=== PATIENT | male | born 1980 | race Caucasian/White ===

== ENCOUNTER 2020-05-27 16:56 | Emergency (ER) | payer BC, OTHER ==
[2020-05-27] MEDS ORDERED: ONDANSETRON 4 MG/2 ML VIAL ONE (19:09)
[2020-05-27] MEDS ORDERED: MORPHINE 4 MG/ML SYR ONE (19:09)
[2020-05-27 19:18] LABS: Absolute Lymphocytes (CBC) 3.4 K/uL (0.7-4.9); Basophils % 0.7 % (0-1.3); Hematocrit 49.8 % (39.6-49.0); Lymphocytes % 38.2 % (15.3-44.8); MPV 7.5 fL (7.6-11.3); RBC Red Blood Cell Count 5.65 M/uL (4.33-5.43)
[2020-05-27 19:33] LABS: ALT/SGPT 39 U/L (12-78); AST/SGOT 23 U/L (15-37); Albumin 3.8 g/dL (3.4-5.0); Alkaline Phosphatase 78 U/L (45-117); BUN Blood Urea Nitrogen 14 mg/dL (7-18); Bicarbonate 27 mmol/L (21-32); Bilirubin Total 0.2 mg/dL (0.2-1.0); Glucose Level 103 mg/dL (74-106); Protein, Total 7.5 g/dL (6.4-8.2); Sodium Level 140 mmol/L (136-145)
--- NOTE | 2020-05-27 19:34 | RAD REPORT ---
EXAM DESCRIPTION: CT - Head Brain Wo Cont - 05/27/2020 7:08 pm CLINICAL HISTORY: Headache COMPARISON: None TECHNIQUE: Computed axial tomography of the head was obtained. IV contrast was not requested. All CT scans are performed using dose optimization technique as appropriate and may include automated exposure control or mA/KV adjustment according to patient size. FINDINGS: An intracranial bleed is not seen . The ventricles are normal in caliber. No extra-axial fluid collection is noted. 13 millimeter cystic mass suspected in the pineal region. Fluid within the sinuses/ mastoids is not seen. 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 It is recommended that the patient have a nonemergen t MRI with contrast for confirmation
[2020-05-27] MEDS ORDERED: NA CHLORIDE 0.9% 500 ML ONE (19:42)
--- NOTE | 2020-05-27 19:44 | RAD REPORT ---
EXAM DESCRIPTION: CTHead angio05/27/2020 7:08 pm CLINICAL HISTORY: Headache COMPARISON: None TECHNIQUE: CT angiogram of the head was obtained. 3D MIPS reconstruction performed. All CT scans are performed using dose optimization technique as appropriate and may include automated exposure control or mA/KV adjustment according to patient size. FINDINGS: The basilar, internal carotid, anterior cerebral, middle cerebral and posterior cerebral a rteries are normal caliber. An aneurysm is not seen. A significant stenosis is not noted. IMPRESSION: Unremarkable CT angiogram head.
[2020-05-27 19:45] LABS: Urine Blood NEGATIVE (NEG); Urine Glucose NEGATIVE (NEG); Urine Protein NEGATIVE (NEG); Urine Specific Gravity 1.015 (1.005-1.030)
--- NOTE | 2020-05-27 19:48 | ER ---
Nurse's Notes 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 Coronavirus screen: Patient denies a cough. Patient denies shortness of breath or difficulty breathing. Patient denies measured and/or subjective temperature greater than 100.4F prior to today's visit. Patient denies travel on a cruise ship or to a country the [facility] currently lists as an affected area. Patient denies contact with known and/or suspected case of COVID-19. Ebola Screen: Patient denies travel to an Ebola-affected area in the 21 days before illness onset. Initial Sepsis Screen: Does the patient meet any 2 criteria? No. Patient's initial sepsis screen is negative. Does the patient have a suspected source of infection? No. Patient's initial sepsis screen is negative. Risk Assessment: Do you want to hurt yourself or someone else? Patient reports no desire to harm self or others. Onset of symptoms was May 27, 2020. 17:41 Method Of Arrival: Ambulatory tw2 17:41 Acuity: MIC 4 tw2 Triage Assessment: 17:44 General: Appears in no apparent distress. obese, well groomed, Behavior is calm, tw2 cooperative, appropriate for age. Pain: Pain currently is 8 out of 10 on a pain scale. Pain began 2-3 days ago. Also complains of nausea, "only when the headache is bad". Neuro: Reports headache. 17:45 Headache History: Denies prior headaches. tw2 Historical: - Allergies: 17:46 No Known Allergies; tw2 - Home Meds: 17:46 None [Active]; tw2 - PMHx: 17:46 bicuspid valve deficiency; tw2 - PSHx: 17:46 None; tw2 - Immunization history:: Adult Immunizations up to date. - Social history:: Smoking status: Patient denies any tobacco usage or history of. Screenin:56 Abuse screen: Denies threats or abuse. Nutritional screening: No deficits noted. ll1 Tuberculosis screening: No symptoms or risk factors identified. Fall Risk IV access (20 points). Total Land Fall Scale indicates No Risk (0-24 pts). Assessment: 18:25 General: Appears in no apparent distress. Behavior is calm, cooperative. Pain: ll1 Complains of pain in head Quality of pain is described as aching, Pain began 2-3 days ago. Is continuous. Neuro: Level of Consciousness is awake, alert, obeys commands, Oriented to person, place, time, situation, Appropriate for age Apprentice Embalmer are equal bilaterally Moves all extremities. Full function Gait is steady, Speech is normal, Facial symmetry appears normal, Pupils are PERRLA, Reports headache. Cardiovascular: No deficits noted. Respiratory: No deficits noted. Musculoskeletal: Circulation, motion, and sensation intact. Capillary refill < 3 seconds, Range of motion: intact in all extremities, Reports pain in head and posterior neck. 19:00 Reassessment: Patient appears in no apparent distress at this time. Patient and/or jb4 family updated on plan of care and expected duration. Pain level reassessed. Patient is alert, oriented x 3, equal unlabored respirations, skin warm/dry/pink. 20:14 Reassessment: Patient appears in no apparent distress at this time. Patient and/or jb4 family updated on plan of care and expected duration. Pain level reassessed. Patient is alert, oriented x 3, equal unlabored respirations, skin warm/dry/pink. Patient states feeling better. Vital Signs: 17:41 BP 122 / 88; Pulse 77; Resp 18; Temp 97.6(TE); Pulse Ox 95% on R/A; Weight 131.54 kg tw2 (R); Height 5 ft. 8 in. (172.72 cm); Pain 8/10; 19:20 BP 145 / 86; Pulse 68; Resp 16; Pulse Ox 93% on R/A; jb4 20:00 BP 128 / 91; Pulse 75; Resp 16; Pulse Ox 93% on R/A; jb4 17:41 Body Mass Index 44.09 (131.54 kg, 172.72 cm) tw2 Ino Coma Score: 18:58 Eye Response: spontaneous(4). Verbal Response: oriented(5). Motor Response: obeys jahaira commands(6). Total: 15. ED Course: 16:59 Patient arrived in ED. am2 16:59 Dominick Johns DO is Private Physician. am2 17:44 Triage completed. tw2 17:44 Arm band placed on. tw2 17:47 Rober Gomez MD is Attending Physician. jahaira 18:18 Kareem Last, RN is Primary Nurse. ll1 18:42 Radiology exam delayed due to IV insertion attempt and/or patient not having vm2 appropriate IV at this time. 18:56 Inserted saline lock: 20 gauge in right antecubital area, using aseptic technique. ll1 Blood collected. 18:57 Patient has correct armband on for positive identification. Bed in low position. Call ll1 light in reach. Side rails up X 1. 19:08 CT Head Angio In Process Unspecified. EDMS 19:08 CT Head Brain wo Cont In Process Unspecified. EDMS 19:13 Primary Nurse role handed off by Kareem Last, JOE jb4 19:13 Kumar Ernandez, RN is Primary Nurse. jb4 19:47 Dominick Johns DO is Referral Physician. jahaira 19:47 Job French MD is Referral Physician. jahaira 20:23 No provider procedures requiring assistance completed. IV discontinued, intact, jb4 bleeding controlled, No redness/swelling at site. Pressure dressing applied. Administered Medications: 19:37 Drug: Zofran (Ondansetron) 4 mg Route: IVP; Site: right antecubital; jb4 20:22 Follow up: Response: No adverse reaction; Nausea is decreased jb4 19:39 Drug: NS 0.9% 500 ml Route: IV; Rate: bolus; Site: right antecubital; jb4 20:22 Follow up: Response: No adverse reaction; IV Status: Completed infusion; IV Intake: jb4 500ml 19:40 Drug: morphine 4 mg {Note: Rass score 0.} Route: IVP; Site: right antecubital; jb4 20:22 Follow up: Response: No adverse reaction; Pain is decreased; RASS: Alert and Calm (0) jb4 Intake: 20:22 IV: 500ml; Total: 500ml. jb4 Outcome: 19:47 Discharge ordered by . jahaira 20:23 Discharged to home ambulatory, with family. jb4 20:23 Condition: stable 20:23 Discharge instructions given to patient, Instructed on discharge instructions, follow up and referral plans. medication usage, Demonstrated understanding of instructions, follow-up care, medications, Prescriptions given X 2. 20:24 Patient left the ED. jb4 Signatures: Dispatcher [employer] EDMS Rober Gomez MD MD cha Wise, Tara, RN RN tw2 Kumar Ernandez, JOE RN jb4 Esthela Fragoso Victoria 2 Kareem Last, RN RN ll1 Corrections: (The following items were deleted from the chart) 17:46 17:46 PMHx: None; tw2 tw2
--- NOTE | 2020-05-27 19:48 | EDPHYS ---
Physician Documentation [facility] Name: Eduard Bassett Jr Age: 39 yrs Sex: Male : 1980 Arrival Date: 05/27/2020 Time: 16:59 Bed 13 Private MD: Dominick Johns H ED Physician Rober Gomez HPI: 05/27 18:55 This 39 yrs old Male presents to ER via Ambulatory with complaints of jahaira Headache > 24hrs Old. 18:55 The patient complains of pain to the top of head, forehead, left frontal area, left jahaira side of the back of head, left occipital area, left base of the skull, right frontal area, right side of the back of head, right occipital area and right base of the skull. The patient describes the headache as aching, constant. Onset: The symptoms/episode began/occurred 3 day(s) ago. Associated signs and symptoms: The patient has no apparent associated signs or symptoms. Severity of symptoms: At its worst the pain was mild, moderate, in the emergency department the pain is unchanged. Headache History: The patient has had previous headaches and this one is similar to previous episodes. The symptoms are alleviated by nothing. the symptoms are aggravated by nothing. The patient has experienced similar episodes in the past, a few times. Historical: - Allergies: 17:46 No Known Allergies; tw2 - Home Meds: 17:46 None [Active]; tw2 - PMHx: 17:46 bicuspid valve deficiency; tw2 - PSHx: 17:46 None; tw2 - Immunization history:: Adult Immunizations up to date. - Social history:: Smoking status: Patient denies any tobacco usage or history of. ROS: 18:56 Constitutional: Negative for fever, chills, and weight loss, Eyes: Negative for injury, jahaira pain, redness, and discharge, ENT: Negative for injury, pain, and discharge, Neck: Negative for injury, pain, and swelling, Cardiovascular: Negative for chest pain, palpitations, and edema, Respiratory: Negative for shortness of breath, cough, wheezing, and pleuritic chest pain, Abdomen/GI: Negative for abdominal pain, nausea, vomiting, diarrhea, and constipation, Back: Negative for injury and pain, : Negative for injury, bleeding, discharge, and swelling, MS/Extremity: Negative for injury and deformity, Skin: Negative for injury, rash, and discoloration, Psych: Negative for depression, anxiety, suicide ideation, homicidal ideation, and hallucinations, Allergy/Immunology: Negative for hives, rash, and allergies, Endocrine: Negative for neck swelling, polydipsia, polyuria, polyphagia, and marked weight changes, Hematologic/Lymphatic: Negative for swollen nodes, abnormal bleeding, and unusual bruising. 18:56 Neuro: Positive for headache. Exam: 18:56 Constitutional: This is a well developed, well nourished patient who is awake, alert, jahaira and in no acute distress. Head/Face: Normocephalic, atraumatic. Eyes: Pupils equal round and reactive to light, extra-ocular motions intact. Lids and lashes normal. Conjunctiva and sclera are non-icteric and not injected. Cornea within normal limits. Periorbital areas with no swelling, redness, or edema. ENT: Nares patent. No nasal discharge, no septal abnormalities noted. Tympanic membranes are normal and external auditory canals are clear. Oropharynx with no redness, swelling, or masses, exudates, or evidence of obstruction, uvula midline. Mucous membranes moist. Neck: Trachea midline, no thyromegaly or masses palpated, and no cervical lymphadenopathy. Supple, full range of motion without nuchal rigidity, or vertebral point tenderness. No Meningismus. Chest/axilla: Normal chest wall appearance and motion. Nontender with no deformity. No lesions are appreciated. Cardiovascular: Regular rate and rhythm with a normal S1 and S2. No gallops, murmurs, or rubs. Normal PMI, no JVD. No pulse deficits. Respiratory: Lungs have equal breath sounds bilaterally, clear to auscultation and percussion. No rales, rhonchi or wheezes noted. No increased work of breathing, no retractions or nasal flaring. Abdomen/GI: Soft, non-tender, with normal bowel sounds. No distension or tympany. No guarding or rebound. No evidence of tenderness throughout. Back: No spinal tenderness. No costovertebral tenderness. Full range of motion. Male : Normal genitalia with no discharge or lesions. Skin: Warm, dry with normal turgor. Normal color with no rashes, no lesions, and no evidence of cellulitis. MS/ Extremity: Pulses equal, no cyanosis. Neurovascular intact. Full, normal range of motion. Neuro: Awake and alert, GCS 15, oriented to person, place, time, and situation. Cranial nerves II-XII grossly intact. Motor strength 5/5 in all extremities. Sensory grossly intact. Cerebellar exam normal. Normal gait. Psych: Awake, alert, with orientation to person, place and time. Behavior, mood, and affect are within normal limits. 18:56 Neck: ROM/movement: is normal, no acute changes, pain, is not appreciated, limited range of motion, is not appreciated, Meningeal signs: are not present, Kernig's sign is negative, Brudzinski's sign is negative, nuchal rigidity, is not appreciated. Vital Signs: 17:41 BP 122 / 88; Pulse 77; Resp 18; Temp 97.6(TE); Pulse Ox 95% on R/A; Weight 131.54 kg tw2 (R); Height 5 ft. 8 in. (172.72 cm); Pain 8/10; 19:20 BP 145 / 86; Pulse 68; Resp 16; Pulse Ox 93% on R/A; jb4 20:00 BP 128 / 91; Pulse 75; Resp 16; Pulse Ox 93% on R/A; jb4 17:41 Body Mass Index 44.09 (131.54 kg, 172.72 cm) tw2 Ino Coma Score: 18:58 Eye Response: spontaneous(4). Verbal Response: oriented(5). Motor Response: obeys jahaira commands(6). Total: 15. MDM: 17:47 Patient medically screened. jahaira 18:58 Differential diagnosis: cluster headache, migraine, neoplasm, sinusitis, subdural jahaira hematoma, vasomotor headache. Data reviewed: vital signs, nurses notes, lab test result(s), EKG, radiologic studies. Data interpreted: welt maker: rate is 77 beats/min, rhythm is regular, Pulse oximetry: on room air. Test interpretation: by ED physician or midlevel provider:. Counseling: I had a detailed discussion with the patient and/or guardian regarding: the historical points, exam findings, and any diagnostic results supporting the discharge/admit diagnosis, lab results, radiology results. 05/27 18:25 Order name: CBC with Diff pm1 05/27 18:25 Order name: CMP pm1 05/27 18:25 Order name: CBC with Automated Diff; Complete Time: 19:45 EDMS 05/27 18:25 Order name: Comprehensive Metabolic Panel; Complete Time: 19:45 EDMS 05/27 18:55 Order name: UDS; Complete Time: 01:03 jahaira 05/27 19:30 Order name: Urine Dipstick--Ancillary (enter results); Complete Time: 01:03 tt3 05/27 18:25 Order name: CT Head Angio; Complete Time: 19:45 pm1 05/27 18:25 Order name: CT Head Brain wo Cont; Complete Time: 19:45 pm1 05/27 18:25 Order name: IV Saline Lock; Complete Time: 18:56 pm1 05/27 18:55 Order name: Urine Dipstick-Ancillary (obtain specimen); Complete Time: 18:57 [facility] Administered Medications: 19:37 Drug: Zofran (Ondansetron) 4 mg Route: IVP; Site: right antecubital; [facility] 20:22 Follow up: Response: No adverse reaction; Nausea is decreased [facility] 19:39 Drug: NS 0.9% 500 ml Route: IV; Rate: bolus; Site: right antecubital; [facility] 20:22 Follow up: Response: No adverse reaction; IV Status: Completed infusion; IV Intake: jb4 500ml 19:40 Drug: morphine 4 mg {Note: Rass score 0.} Route: IVP; Site: right antecubital; [facility] 20:22 Follow up: Response: No adverse reaction; Pain is decreased; RASS: Alert and Calm (0) [facility] Disposition: 05/27/20 19:47 Discharged to Home. 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 - Condition is Stable. - Discharge Instructions: General Headache Without Cause, Obesity, Adult, General Headache Without Cause, [id number]. - Prescriptions for Fioricet with Codeine 50- 325-40-30 mg Oral capsule - take 2 capsule by ORAL route every 8 hours as needed not to exceed 6 capsules per 24hrs; 24 capsule. Zofran 4 mg Oral Tablet - take 1 tablet by ORAL route every 12 hours As needed; 20 tablet. - Medication Reconciliation Form, Thank You Letter, Antibiotic Education, Prescription Opioid Use, Work release form form. - Follow up: Dominick Johns; When: 2 - 3 days; Reason: Recheck today's complaints, Continuance of care, Re-evaluation by your physician. Follow up: Job French; When: 2 - 3 days; Reason: Recheck today's complaints, Re-evaluation by your physician. - Problem is new. - Symptoms have improved. Signatures: Dispatcher [employer] EDMS Rober Gomez MD MD cha Marinas, Patrick, MANUFACTURING ENGINEERING MANAGER MANUFACTURING ENGINEERING MANAGER pm1 Diana Vizcaino RN RN tw2 Kumar Ernandez RN RN jb4 Corrections: (The following items were deleted from the chart) 17:46 17:46 PMHx: None; tw2 tw2 19:50 19:47 05/27/2020 19:47 Discharged to Home. Impression: Headache; Obesity, unspecified. [facility] Condition is Stable. Discharge Instructions: General Headache Without Cause, Obesity, Adult, General Headache Without Cause, [id number]-Shaq. Prescriptions for Fioricet with Codeine 45-010-19-30 mg Oral capsule - take 2 capsule by ORAL route every 8 hours as needed not to exceed 6 capsules per 24hrs; 24 capsule, Zofran 4 mg Oral Tablet - take 1 tablet by ORAL route every 12 hours As needed; 20 tablet. and Forms are Medication Reconciliation Form, Thank You Letter, Antibiotic Education, Prescription Opioid Use. Follow up: Dominick Johns; When: 2 - 3 days; Reason: Recheck today's complaints, Continuance of care, Re-evaluation by your physician. Follow up: Job French; When: 2 - 3 days; Reason: Recheck today's complaints, Re-evaluation by your physician. Problem is new. Symptoms have improved. [facility] 20:24 19:50 05/27/2020 19:47 Discharged to Home. 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 Condition is Stable. Discharge Instructions: General Headache Without Cause, Obesity, Adult, General Headache Without Cause, [id number]. Prescriptions for Fioricet with Codeine 70-430-40-30 mg Oral capsule - take 2 capsule by ORAL route every 8 hours as needed not to exceed 6 capsules per 24hrs; 24 capsule, Zofran 4 mg Oral Tablet - take 1 tablet by ORAL route every 12 hours As needed; 20 tablet. and Forms are Medication Reconciliation Form, Thank You Letter, Antibiotic Education, Prescription Opioid Use. Follow up: Dominick Johns; When: 2 - 3 days; Reason: Recheck today's complaints, Continuance of care, Re-evaluation by your physician. Follow up: Job French; When: 2 - 3 days; Reason: Recheck today's complaints, Re-evaluation by your physician. Problem is new. Symptoms have improved. jahaira
[2020-05-27 19:56] LABS: Barbiturates NEGATIVE (NEGATIVE); Benzodiazepines NEGATIVE (NEGATIVE); Cocaine NEGATIVE (NEGATIVE); METHAMPHETAM NEGATIVE (NEGATIVE); Methadone NEGATIVE (NEGATIVE); Opiates NEGATIVE (NEGATIVE); Phencyclidine NEGATIVE (NEGATIVE); THC Cannibis NEGATIVE (NEGATIVE)
[2020-05-27 20:30] VITALS: TEMP 97.6
[2020-05-27 20:32] VITALS: O2SAT 93
[2020-05-27 20:33] VITALS: BP 128/91
== END 2020-05-27 20:24 | disposition home or self-care (01) ==
LOC: ER 16:56
DX: R51 Headache (principal); D44.5 Neoplasm of uncertain behavior of pineal gland; E66.9 Obesity, unspecified
CPT/HCPCS: 96361; 85025; 36415; 82565; 80307 ×8; 81003; 80053; 70450; 70496; 96375; 96374; 99284; Q9967; J7040; J2405

== ENCOUNTER 2021-12-27 13:18 | Emergency (ER) | payer BC ==
--- NOTE | 2021-12-27 14:04 | EDPHYS ---
Physician Documentation [facility] Name: Eduard Bassett Jr Age: 41 yrs Sex: Male : 1980 Arrival Date: 12/27/2021 Time: 13:20 Bed 6 Private MD: ED Physician Dany Vanegas HPI: 12/27 14:00 This 41 yrs old Male presents to ER via Ambulatory with complaints of Rash. jr11 14:00 The patient's rash thought to be caused by an unknown cause. The rash is located on the jr11 right leg. The rash can be described as erythematous, vesicular, burning. Onset: The symptoms/episode began/occurred yesterday. Associated signs and symptoms: Pertinent negatives: difficulty breathing, nausea, swelling of lips, swelling of throat, swelling of tongue, vomiting. Severity of symptoms: At their worst the symptoms were moderate in the emergency department the symptoms are worse. Treatment given at home: none. Historical: - Allergies: 13:40 No Known Allergies; ss - PMHx: 13:40 bicuspid valve deficiency; Migraines; ss - Immunization history:: Client reports receiving the 2nd dose of the Covid vaccine. - Social history:: Smoking status: Patient denies any tobacco usage or history of. ROS: 14:00 Constitutional: Negative for fever, chills Eyes: Negative for injury, pain, redness, jr11 and discharge, ENT: Negative for injury, pain, and discharge, Neck: Negative for injury, pain, and swelling, Cardiovascular: Negative for chest pain, palpitations, and edema, Abdomen/GI: Negative for abdominal pain, nausea, vomiting Back: Negative for injury and pain, Neuro: Negative for headache, weakness, numbness, tingling, and seizure, Psych: Negative for depression, anxiety, suicide ideation, homicidal ideation, and hallucinations, Allergy/Immunology: Negative for hives, +rash Exam: 14:00 Constitutional: This is a well developed, well nourished patient who is awake, alert, jr11 and in no acute distress. Head/Face: Normocephalic, atraumatic. Eyes: Extra-ocular motions intact. Lids and lashes normal. Conjunctiva and sclera are non-icteric and not injected. Cornea within normal limits. Periorbital areas with no swelling, redness, or edema. ENT: Nares patent. No nasal discharge, no septal abnormalities noted. Oropharynx with no redness, swelling, or masses, exudates, or evidence of obstruction, uvula midline. Mucous membranes moist. Neck: Trachea midline, no thyromegaly or masses palpated, and no cervical lymphadenopathy. Supple, full range of motion without nuchal rigidity, or vertebral point tenderness. No Meningismus. Chest/axilla: Normal chest wall appearance and motion. Nontender with no deformity. No lesions are appreciated. Cardiovascular: Regular rate and rhythm with a normal S1 and S2. No gallops, murmurs, or rubs. Normal PMI, no JVD. No pulse deficits. Respiratory: Lungs have equal breath sounds bilaterally, clear to auscultation and percussion. No rales, rhonchi or wheezes noted. No increased work of breathing, no retractions or nasal flaring. Abdomen/GI: Soft, non-tender, with normal bowel sounds. No distension or tympany. No guarding or rebound. No evidence of tenderness throughout. Back: No spinal tenderness. No costovertebral tenderness. Full range of motion. Skin: erythematous rash, RLE follows dermatomal distribution, appears dried up vesicles Vital Signs: 13:25 BP 168 / 92; Pulse 92; Resp 18; Temp 98.4(TE); Pulse Ox 98% on R/A; Weight 127.01 kg; ss Height 5 ft. 7 in. (170.18 cm); Pain 1/10; 14:17 BP 152 / 78; Pulse 82; Resp 18; Temp 97.9; Pulse Ox 99% on R/A; ph 13:25 Body Mass Index 43.85 (127.01 kg, 170.18 cm) ss MDM: 13:59 Patient medically screened. jr11 14:00 Differential diagnosis: pt with rash, concern zoster. Data reviewed: vital signs, jr11 nurses notes. Administered Medications: No medications were administered Disposition Summary: 12/27/21 14:04 Discharge Ordered Location: Home [facility] Condition: Stable jr11 Diagnosis - Rash and other nonspecific skin eruption jr11 - Zoster without complications jr11 Followup: jr11 - With: Private Physician - When: 1 - 2 days - Reason: Re-evaluation by your physician Discharge Instructions: - Discharge Summary Sheet jr11 - Rash, Adult jr11 Forms: - Medication Reconciliation Form jr11 - Work release form ph - Thank You Letter jr11 - Antibiotic Education jr11 - Prescription Opioid Use jr11 Prescriptions: - Acyclovir 800 mg Oral Tablet - take 1 tablet by ORAL route 5 times per day for 10 days; 50 tablet; Refills: 0, jr11 Product Selection Permitted - Prednisone 20 mg Oral Tablet - take 3 tablets by ORAL route once daily for 5 days; 15 tablet; Refills: 0, jr11 Product Selection Permitted Signatures: Radha Haile RN RN Dany Terry MD MD jr11 Corrections: (The following items were deleted from the chart) 14:02 14:00 Constitutional: Negative for fever, chills Eyes: Negative for injury, pain, jr11 redness, and discharge, ENT: Negative for injury, pain, and discharge, Neck: Negative for injury, pain, and swelling, Cardiovascular: Negative for chest pain, palpitations, and edema, Abdomen/GI: Negative for abdominal pain, nausea, vomiting Back: Negative for injury and pain, Neuro: Negative for headache, weakness, numbness, tingling, and seizure, Psych: Negative for depression, anxiety, suicide ideation, homicidal ideation, and hallucinations, Allergy/Immunology: Negative for hives, rash, and allergies, jr11
--- NOTE | 2021-12-27 14:04 | ER ---
Nurse's Notes [facility] Name: Eduadr Bassett Jr Age: 41 yrs Sex: Male : 1980 Arrival Date: 12/27/2021 Time: 13:20 Bed 6 Private MD: Diagnosis: Rash and other nonspecific skin eruption;Zoster without complications Presentation: 12/27 13:25 Chief complaint: Patient states: rash vs bites to LLE that patient noticed yesterday. ss C/o burning sensation 11/09. Coronavirus screen: Client denies travel out of the [place] in the last 14 days. Ebola Screen: Patient denies exposure to infectious person. Patient denies travel to an Ebola-affected area in the 21 days before illness onset. Initial Sepsis Screen: Does the patient meet any 2 criteria? No. Patient's initial sepsis screen is negative. Does the patient have a suspected source of infection? No. Patient's initial sepsis screen is negative. Risk Assessment: Do you want to hurt yourself or someone else? Patient reports no desire to harm self or others. Onset of symptoms was December 26, 2021. 13:25 Method Of Arrival: Ambulatory ss 13:25 Acuity: MIC 3 ss Historical: - Allergies: 13:40 No Known Allergies; ss - PMHx: 13:40 bicuspid valve deficiency; Migraines; ss - Immunization history:: Client reports receiving the 2nd dose of the Covid vaccine. - Social history:: Smoking status: Patient denies any tobacco usage or history of. Screenin:17 Abuse screen: Denies threats or abuse. Denies injuries from another. Nutritional ph screening: No deficits noted. Tuberculosis screening: No symptoms or risk factors identified. Fall Risk None identified. Assessment: 14:16 General: Appears in no apparent distress. comfortable, Behavior is calm, cooperative, ph appropriate for age, Denies fever, feeling ill. Pain: Complains of pain in lateral aspect of right calf Quality of pain is described as burning. 14:16 Neuro: Level of Consciousness is awake, alert, obeys commands, Oriented to person, ph place, time, situation. Cardiovascular: Capillary refill < 3 seconds in bilateral fingers Patient's skin is warm and dry. Respiratory: Airway is patent Respiratory effort is even, unlabored. Derm: Skin is healthy with good turgor, Skin is pink, warm \T\ dry. Rash noted that is red, vesicular, on right leg. Vital Signs: 13:25 BP 168 / 92; Pulse 92; Resp 18; Temp 98.4(TE); Pulse Ox 98% on R/A; Weight 127.01 kg; Height 5 ft. 7 in. (170.18 cm); Pain /; 14:17 BP 152 / 78; Pulse 82; Resp 18; Temp 97.9; Pulse Ox 99% on R/A; ph 13:25 Body Mass Index 43.85 (127.01 kg, 170.18 cm) ED Course: 13:20 Patient arrived in ED. ds1 13:35 Dany Vanegas MD is Attending Physician. 11 13:39 Arti Jacobson RN is Primary Nurse. rogerio 13:40 Triage completed. ss 13:40 Arm band placed on right wrist. 14:17 Patient has correct armband on for positive identification. Bed in low position. Call ph light in reach. Side rails up X 1. 14:17 No provider procedures requiring assistance completed. Patient did not have IV access ph during this emergency room visit. Administered Medications: No medications were administered Outcome: 14:04 Discharge ordered by . domingo 14:17 Discharged to home ambulatory, with family. ph 14:17 Condition: good 14:17 Discharge instructions given to patient, Instructed on discharge instructions, follow up and referral plans. medication usage, Demonstrated understanding of instructions, follow-up care, medications, Prescriptions given X 2. 14:18 Patient left the ED. ph Signatures: Daniela Brower ds1 Radha Haile RN RN Oly Gregory RN RN Arti Jacobson RN RN Dany Vanegas MD MD [email or web address] Corrections: (The following items were deleted from the chart) 14:17 14:16 Pain: Denies pain. ph ph
[2021-12-27 14:23] VITALS: BP 152/78; TEMP 97.9; O2SAT 99
== END 2021-12-27 14:18 | disposition home or self-care (01) ==
LOC: ER 13:18
DX: B02.9 Zoster without complications (principal)
CPT/HCPCS: 99282

== ENCOUNTER 2022-03-18 07:38 | Emergency (ER) | payer BC ==
[2022-03-18 08:58] LABS: Hematocrit 49.3 % (39.6-49.0); Lymphocytes % 43.1 % (15.3-44.8); MPV 7.2 fL (7.6-11.3); RBC Red Blood Cell Count 5.57 M/uL (4.33-5.43)
[2022-03-18] MEDS ORDERED: NA CHLORIDE 0.9% 1,000 ML ONE (09:14)
[2022-03-18] MEDS ORDERED: FAMOTIDINE 20 MG/2 ML VIAL IV ONE (09:15)
[2022-03-18] MEDS ORDERED: ONDANSETRON 4 MG/2 ML VIAL ONE (09:15)
[2022-03-18] MEDS ORDERED: MORPHINE 4 MG/ML SYR ONE (09:15)
[2022-03-18 09:24] LABS: Albumin 3.7 g/dL (3.4-5.0); Bilirubin Total 0.5 mg/dL (0.2-1.0); Protein, Total 7.1 g/dL (6.4-8.2)
--- NOTE | 2022-03-18 09:58 | RAD REPORT ---
EXAM DESCRIPTION: CT - Abdomen Pelvis W Contrast - 03/18/2022 9:41 am CLINICAL HISTORY: Abdominal pain, acute, nonlocalized COMPARISON: No comparisons TECHNIQUE: Biphasic, helical CT imaging of the abdomen and pelvis was performed following 100 ml non -ionic IV contrast. No oral contrast administered. All CT scans are performed using dose optimization technique as appropriate and may include automated exposure control or mA/KV adjustment according to patient size. FINDINGS: No suspicious findings in the lung bases. No cardiomegaly or pericardial effusion. Liver and spleen are normal size. Fatty infiltration is present in the liver. No focal lesions seen. No portal vein abnormality identified. No pancreatic or peripancreatic abnormality seen. Gallbladder and biliary tree are also without suspicious finding. Symmetric renal function is seen with no hydronephrosis or suspicious renal mass. No pyelonephritis o r acute parenchymal process. No bladder abnormalities. No adrenal abnormalities. No dilated bowel loops or bowel wall thickening. The appendix is normal. No active GI process identif iable. No free air, free fluid or inflammatory stranding. No mass or bulky lymphadenopathy. No abdom inal wall hematoma. Patient has a very minimal fat only left inguinal hernia. No congested or [place] fat. Bony degenerative change seen in the lower lumbar spine. No acute bone finding. No acute vascular finding. IMPRESSION: Contrast enhanced CT abdomen and pelvis showing no acute or emergent finding. No abnorm ality to explain left upper quadrant pain. Nonacute findings detailed in the body of the report.
--- NOTE | 2022-03-18 10:19 | ER ---
Nurse's Notes [facility] Name: Eduard Bassett Jr Age: 41 yrs Sex: Male : 1980 Arrival Date: 03/18/2022 Time: 07:40 Bed 20 Private MD: Diagnosis: Upper abdominal pain, unspecified Presentation: 03/18 08:32 Chief complaint: Patient states: LUQ pain, mild headache that is normal. Coronavirus iw screen: At this time, the client does not indicate any symptoms associated with coronavirus-19. Ebola Screen: Patient negative for fever greater than or equal to 101.5 degrees Fahrenheit, and additional compatible Ebola Virus Disease symptoms Patient denies exposure to infectious person. Patient denies travel to an Ebola-affected area in the 21 days before illness onset. No symptoms or risks identified at this time. Initial Sepsis Screen: Does the patient meet any 2 criteria? No. Patient's initial sepsis screen is negative. Does the patient have a suspected source of infection? No. Patient's initial sepsis screen is negative. Risk Assessment: Do you want to hurt yourself or someone else? Patient reports no desire to harm self or others. Onset of symptoms was March 18, 2022. 08:32 Method Of Arrival: Ambulatory iw 08:32 Acuity: MIC 3 iw Triage Assessment: 09:25 Headache History: The patient has had previous headaches and this one is similar to ap3 previous episodes. General: Appears in no apparent distress. Behavior is calm, cooperative, appropriate for age. Pain: Also complains of. Pain: Complains of pain in left upper quadrant and forehead Pain currently is 6 out of 10 on a pain scale. Pain began 1-2 weeks ago. Neuro: Level of Consciousness is awake, alert, obeys commands, Oriented to person, place, time, situation, Speech is normal. Cardiovascular: Capillary refill < 3 seconds Patient's skin is warm and dry. Respiratory: Airway is patent Respiratory effort is even, unlabored. Historical: - Allergies: 08:44 No Known Allergies; iw - PMHx: 08:33 bicuspid valve deficiency; Migraines; iw - Immunization history:: Client reports receiving the 2nd dose of the Covid vaccine. - Social history:: Smoking status: Patient denies any tobacco usage or history of. Screenin:25 Abuse screen: Denies threats or abuse. Nutritional screening: No deficits noted. ap3 Tuberculosis screening: No symptoms or risk factors identified. Fall Risk None identified. Assessment: 09:24 Reassessment: Patient and/or family updated on plan of care and expected duration. Pain ap3 level reassessed. Patient is alert, oriented x 3, equal unlabored respirations, skin warm/dry/pink. General: Appears in no apparent distress. comfortable. Pain: Complains of pain in left upper quadrant and forehead. Neuro: Level of Consciousness is awake, alert, obeys commands, Oriented to person, place, time, situation, Appropriate for age Gait is steady, Speech is normal, Facial symmetry appears normal. Cardiovascular: Patient's skin is warm and dry. Respiratory: Airway is patent Respiratory effort is even, unlabored, Respiratory pattern is regular, symmetrical. GI: Reports upper abdominal pain, nausea. Vital Signs: 08:32 BP 132 / 91; Pulse 66; Resp 16; Temp 97.5; Pulse Ox 97% on R/A; iw 09:24 BP 126 / 78; Pulse 69; Pulse Ox 96% on R/A; ap3 ED Course: 07:40 Patient arrived in ED. as 07:56 [facility] jh7 07:57 Rober Gomez MD is Attending Physician. jh7 08:33 Triage completed. iw 08:34 Arm band placed on. iw 08:53 Inserted saline lock: 22 gauge in right antecubital area, using aseptic technique. iw 09:06 Esthela Jackson, RN is Primary Nurse. ap3 09:26 Patient has correct armband on for positive identification. Bed in low position. Call ap3 light in reach. Side rails up X 1. Pulse ox on. NIBP on. Door closed. Noise minimized. 09:[address] via wheelchair. ap3 09:43 CT Abd/Pelvis - IV Contrast Only In Process Unspecified. EDMS 09:[address]. ap3 10:18 Sae Gerardo MD is Referral Physician. jh7 10:30 IV discontinued, intact, bleeding controlled, No redness/swelling at site. Pressure mb7 dressing applied. 10:32 No provider procedures requiring assistance completed. ap3 10:32 IV discontinued. ap3 Administered Medications: 09:23 Drug: NS 0.9% 1000 ml Route: IV; Rate: 1 bolus; Site: left antecubital; ap3 10:31 Follow up: IV Status: Completed infusion; IV Intake: 1000ml ap3 09:23 Drug: Pepcid (famotidine) 20 mg Route: IVP; Site: left antecubital; ap3 10:31 Follow up: Response: No adverse reaction ap3 09:23 Drug: morphine 4 mg Route: IVP; Site: left antecubital; ap3 10:31 Follow up: Response: No adverse reaction ap3 09:24 Drug: Zofran (Ondansetron) 4 mg Route: IVP; Site: left antecubital; ap3 10:31 Follow up: Response: No adverse reaction ap3 Medication: 09:27 VIS not applicable for this client. ap3 Intake: 10:31 IV: 1000ml; Total: 1000ml. ap3 Outcome: 10:18 Discharge ordered by . jh7 10:32 Discharged to home ambulatory, with family. ap3 10:32 Condition: good 10:32 Discharge instructions given to patient, family, Instructed on discharge instructions, follow up and referral plans. medication usage, Demonstrated understanding of instructions, follow-up care, medications, Prescriptions given X 1. 10:32 Patient left the ED. ap3 Signatures: Dispatcher [employer] Chitra Moreno Irene, RN RN iw Prokisch, Amanda, RN RN ap3 Frances Ponce 7 Mami Veras, NURYS CONCRETE BLOCK LAYER [facility]
--- NOTE | 2022-03-18 10:19 | EDPHYS ---
Physician Documentation [facility] Name: Eduard Bassett Jr Age: 41 yrs Sex: Male : 1980 Arrival Date: 03/18/2022 Time: 07:40 Bed 20 Private MD: Rober Badillo HPI: 03/18 08:34 This 41 yrs old Male presents to ER via Ambulatory with complaints of Headache, jh7 Epigastric Pain. 08:35 The patient presents with abdominal pain in the epigastric area, in the left upper jh7 quadrant. Onset: The symptoms/episode began/occurred 1 week(s) ago. Associated signs and symptoms: Pertinent positives: mild headache, Pertinent negatives: dizziness, fever, neck stiffness, vision changes, vomiting, diarrhea. Patient presents with left upper quadrant and epigastric pain for 1 week. He also reports a mild migraine headache, that he reports is consistent with his chronic migraines. 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 States that he has a history of fatty liver, that his pain is worsened over the past week. Denies nausea, vomiting, diarrhea, fever, or any neurological symptoms.. Historical: - Allergies: 08:44 No Known Allergies; iw - PMHx: 08:33 bicuspid valve deficiency; Migraines; iw - Immunization history:: Client reports receiving the 2nd dose of the Covid vaccine. - Social history:: Smoking status: Patient denies any tobacco usage or history of. ROS: 08:35 Constitutional: Negative for fever, chills, and weight loss, Neck: Negative for injury, jh7 pain, and swelling, Cardiovascular: Negative for chest pain, palpitations, and edema, Respiratory: Negative for shortness of breath, cough, wheezing, and pleuritic chest pain, Skin: Negative for injury, rash, and discoloration. 08:35 Abdomen/GI: Positive for abdominal pain, Negative for nausea, vomiting, and diarrhea, constipation, dysphagia, rectal bleeding. 08:35 Neuro: Positive for headache, Negative for altered mental status, dizziness, gait disturbance, loss of consciousness, numbness, syncope, tingling, weakness. 08:35 All other systems are negative. Exam: 08:35 Constitutional: This is a well developed, well nourished patient who is awake, alert, jh7 and in no acute distress. ENT: Nares patent. No nasal discharge, no septal abnormalities noted. Tympanic membranes are normal and external auditory canals are clear. Oropharynx with no redness, swelling, or masses, exudates, or evidence of obstruction, uvula midline. Mucous membranes moist. Neck: Trachea midline, no thyromegaly or masses palpated, and no cervical lymphadenopathy. Supple, full range of motion without nuchal rigidity, or vertebral point tenderness. No Meningismus. Cardiovascular: Regular rate and rhythm with a normal S1 and S2. No gallops, murmurs, or rubs. Normal PMI, no JVD. No pulse deficits. Respiratory: Lungs have equal breath sounds bilaterally, clear to auscultation and percussion. No rales, rhonchi or wheezes noted. No increased work of breathing, no retractions or nasal flaring. Back: No spinal tenderness. No costovertebral tenderness. Full range of motion. Skin: Warm, dry with normal turgor. Normal color with no rashes, no lesions, and no evidence of cellulitis. Neuro: Awake and alert, GCS 15, oriented to person, place, time, and situation. Cranial nerves II-XII grossly intact. Motor strength 5/5 in all extremities. Sensory grossly intact. Normal gait. 08:35 Abdomen/GI: Inspection: abdomen appears normal, Bowel sounds: normal, Palpation: mild abdominal tenderness, in the left upper quadrant. Vital Signs: 08:32 BP 132 / 91; Pulse 66; Resp 16; Temp 97.5; Pulse Ox 97% on R/A; iw 09:24 BP 126 / 78; Pulse 69; Pulse Ox 96% on R/A; ap3 MDM: 09:01 Patient medically screened. [facility] 10:33 Differential diagnosis: non-specific abd pain, pancreatitis, Peptic Ulcer Disease. Data [facility] reviewed: vital signs, nurses notes, lab test result(s), radiologic studies, CT scan. Data interpreted: Pulse oximetry: is 96 %. Interpretation: normal. Counseling: I had a detailed discussion with the patient and/or guardian regarding: the historical points, exam findings, and any diagnostic results supporting the discharge/admit diagnosis, the need for outpatient follow up, for definitive care, a processing inspector. Counseling: I had a detailed discussion with the patient and/or guardian regarding: to return to the emergency department if symptoms worsen or persist or if there are any questions or concerns that arise at home. Response to treatment: the patient's symptoms have markedly improved after treatment. ED course: The patient significantly improved after medication therapy and IV fluids. He remained hemodynamically stable throughout the ER visit. No signs of peritonitis or acute abdomen. Informed him of nonacute findings on the CT scan, and advised him to follow-up with his GI doctor. The patient's mild headache also resolved after medication therapy. He was advised to return to the ER if his symptoms return, or he develops any new concerning symptoms. The patient understood the plan of care.. 03/18 08:24 Order name: CBC with Diff; Complete Time: 09:43 [facility] 03/18 08:24 Order name: CMP; Complete Time: 09:43 [facility] 03/18 08:24 Order name: Lipase; Complete Time: 09:43 [facility] 03/18 08:24 Order name: CT Abd/Pelvis - IV Contrast Only; Complete Time: 10:14 [facility] 03/18 08:24 Order name: IV Saline Lock; Complete Time: 08:53 [facility] 03/18 08:24 Order name: Labs collected and sent; Complete Time: 08:53 Administered Medications: 09:23 Drug: NS 0.9% 1000 ml Route: IV; Rate: 1 bolus; Site: left antecubital; ap3 10:31 Follow up: IV Status: Completed infusion; IV Intake: 1000ml ap3 09:23 Drug: Pepcid (famotidine) 20 mg Route: IVP; Site: left antecubital; ap3 10:31 Follow up: Response: No adverse reaction ap3 09:23 Drug: morphine 4 mg Route: IVP; Site: left antecubital; ap3 10:31 Follow up: Response: No adverse reaction ap3 09:24 Drug: Zofran (Ondansetron) 4 mg Route: IVP; Site: left antecubital; ap3 10:31 Follow up: Response: No adverse reaction ap3 Disposition Summary: 03/18/22 10:18 Discharge Ordered Location: Home [facility] Problem: new [facility] Symptoms: have improved [facility] Condition: Stable [facility] Diagnosis - Upper abdominal pain, unspecified [facility] Followup: [facility] - With: Sae Gerardo MD - When: 2 - 3 days - Reason: Recheck today's complaints Discharge Instructions: - Discharge Summary Sheet jh7 - Abdominal Pain, Adult jh7 - Fatty Liver Disease 7 Forms: - Medication Reconciliation Form jh7 - Work release form em1 - Thank You Letter [facility] Prescriptions: - Carafate 1 gram Oral Tablet - take 1 tablet by ORAL route 4 times per day take on an empty stomach, beginning jh7 on waking and last dose at bedtime; 100 tablet; Refills: 0, Product Selection Permitted Signatures: Dispatcher [employer] Terri Solo RN RN iw Prokisch, Amanda, RN RN ap3 Mami Veras, TELEPHONE OPERATOR RECEPTIONIST TELEPHONE OPERATOR RECEPTIONIST [facility] Corrections: (The following items were deleted from the chart) 08:39 08:34 The patient complains of pain to the forehead, jh7 jh7 08:39 08:34 The patient describes the headache as jh7 jh7
[2022-03-18 10:39] VITALS: TEMP 97.5
[2022-03-18 10:40] VITALS: BP 126/78; O2SAT 96
== END 2022-03-18 10:32 | disposition home or self-care (01) ==
LOC: ER 07:38
DX: R10.13 Epigastric pain (principal); R51.9 Headache, unspecified
CPT/HCPCS: 96361; 85025; 36415; 83690; 80053; 74177; 96375; 96374; 99284; Q9967; J7030; J2405; J3490

== ENCOUNTER 2022-10-27 06:48 | Emergency (ER) | payer BC ==
[2022-10-27] MEDS ORDERED: KETOROLAC 30 MG/ML INJ ONE (07:37)
[2022-10-27 07:53] LABS: Absolute Lymphocytes (CBC) 2.4 K/uL (0.7-4.9); Hematocrit 46.2 % (39.6-49.0); Lymphocytes % 37.7 % (15.3-44.8); MCV 88.2 fL (80-100); RBC Red Blood Cell Count 5.24 M/uL (4.33-5.43)
[2022-10-27 07:54] LABS: Urine Blood Negative (Negative); Urine Glucose Negative (Negative); Urine Protein Negative (Negative); Urine Specific Gravity 1.025 (1.005-1.030)
[2022-10-27 08:04] LABS: Urine Bacteria None Seen /HPF (<20); Urine RBC <5 /HPF (None Seen)
[2022-10-27 08:19] LABS: Albumin 3.6 g/dL (3.4-5.0); Bilirubin Total 0.4 mg/dL (0.2-1.0); Potassium 4.1 mmol/L (3.5-5.1); Protein, Total 6.6 g/dL (6.4-8.2)
--- NOTE | 2022-10-27 08:25 | RAD REPORT ---
EXAM DESCRIPTION: US - Scrotum Testicles - 10/27/2022 8:16 am CLINICAL HISTORY: PAIN COMPARISON: Abdomen Pelvis W Contrast dated 03/18/2022 FINDINGS: The right testicle 4.1 x 2.5 x 2.5 cm with volume of 13.2 cc. No intratesticular masses or evidence of testicular torsion. The left testicle 3.9 x 2.3 x 2.8 cm with volume of 13.3 cc. No intratesticular masses or evidence of testicular torsion. Both epididymides are normal in size and appearance. No pathologic fluid collections. Incidentally noted fat containing left inguinal hernia. IMPRESSION: Bilateral testicular blood flow. No acute findings identified.
--- NOTE | 2022-10-27 09:06 | EDPHYS ---
Physician Documentation [facility] Name: Eduard Bassett Jr Age: 41 yrs Sex: Male : 1980 Arrival Date: 10/27/2022 Time: 06:49 Bed 12 Private MD: ED Physician Saul Rees HPI: 10/27 09:14 This 41 yrs old Male presents to ER via Ambulatory with complaints of testicular pain. rt 09:14 Presents to the ED with a left-sided testicular pain that started this morning, worse rt with walking. She states that she has a known left-sided inguinal hernia, was referred to a surgeon. The patient denies nausea, vomiting, other acute complaints. Pain is aching nature, moderate in severity, no other aggravating or alleviating factors.. Historical: - Allergies: 07:08 No Known Allergies; ph - PMHx: 07:08 bicuspid valve deficiency; Migraines; ph - Immunization history:: Adult Immunizations unknown. - Social history:: Smoking status: Patient denies any tobacco usage or history of. - Family history:: not pertinent. ROS: 09:14 Constitutional: Negative for fever, chills, and weight loss, Eyes: Negative for injury, rt pain, redness, and discharge, ENT: Negative for injury, pain, and discharge, Cardiovascular: Negative for chest pain, palpitations, and edema, Respiratory: Negative for shortness of breath, cough, wheezing, and pleuritic chest pain, Abdomen/GI: Negative for abdominal pain, nausea, vomiting, diarrhea, and constipation, Back: Negative for injury and pain, MS/Extremity: Negative for injury and deformity, Skin: Negative for injury, rash, and discoloration, Neuro: Negative for headache, weakness, numbness, tingling, and seizure, Psych: Negative for depression, anxiety, suicide ideation, homicidal ideation, and hallucinations. 09:14 : Positive for testicular pain Negative for burning with urination. Exam: 09:14 Constitutional: This is a well developed, well nourished patient who is awake, alert, rt and in no acute distress. Head/Face: Normocephalic, atraumatic. Eyes: Pupils equal round and reactive to light, extra-ocular motions intact. Lids and lashes normal. Conjunctiva and sclera are non-icteric and not injected. Cornea within normal limits. Periorbital areas with no swelling, redness, or edema. ENT: Nares patent. No nasal discharge, no septal abnormalities noted. Tympanic membranes are normal and external auditory canals are clear. Oropharynx with no redness, swelling, or masses, exudates, or evidence of obstruction, uvula midline. Mucous membranes moist. Neck: Trachea midline, no thyromegaly or masses palpated, and no cervical lymphadenopathy. Supple, full range of motion without nuchal rigidity, or vertebral point tenderness. No Meningismus. Chest/axilla: Normal chest wall appearance and motion. Nontender with no deformity. No lesions are appreciated. Cardiovascular: Regular rate and rhythm with a normal S1 and S2. No gallops, murmurs, or rubs. Normal PMI, no JVD. No pulse deficits. Respiratory: Lungs have equal breath sounds bilaterally, clear to auscultation and percussion. No rales, rhonchi or wheezes noted. No increased work of breathing, no retractions or nasal flaring. Abdomen/GI: Soft, non-tender, with normal bowel sounds. No distension or tympany. No guarding or rebound. No evidence of tenderness throughout. Back: No spinal tenderness. No costovertebral tenderness. Full range of motion. Skin: Warm, dry with normal turgor. Normal color with no rashes, no lesions, and no evidence of cellulitis. MS/ Extremity: Pulses equal, no cyanosis. Neurovascular intact. Full, normal range of motion. Neuro: Awake and alert, GCS 15, oriented to person, place, time, and situation. Cranial nerves II-XII grossly intact. Motor strength 5/5 in all extremities. Sensory grossly intact. Cerebellar exam normal. Normal gait. Psych: Awake, alert, with orientation to person, place and time. Behavior, mood, and affect are within normal limits. 09:14 : Is within normal limits, no appreciable hernia in the left hemiscrotum, no testicular tenderness or masses, skin is normal. Vital Signs: 07:06 BP 136 / 91; Pulse 77; Resp 18; Temp 97.8; Pulse Ox 95% on R/A; Weight 136.08 kg; ph Height 5 ft. 8 in. (172.72 cm); 09:37 BP 122 / 86; Pulse 71; Resp 18; Temp 98.0; Pulse Ox 99% on R/A; ph 07:06 Body Mass Index 45.61 (136.08 kg, 172.72 cm) ph MDM: 07:29 Patient medically screened. rt 09:14 Differential diagnosis: Testicular torsion, inguinal hernia, strangulated, rt incarcerated, reducible. Data reviewed: vital signs, nurses notes, lab test result(s), radiologic studies. ED course: Patient presents to the ED with a left hernia pain. Ultrasound was obtained that shows no evidence of testicular torsion, fat-containing hernia. Labs including lactate are benign. Patient is benign abdominal examination. Patient was symptomatic improvement with treatment in the ED. Not believe that strangulated hernia is likely. I did offer the patient CT scan, patient declines states that he wishes to follow-up. Patient to keep appointments with general surgery and will return for worsening symptoms.. 10/27 07:30 Order name: CBC with Diff; Complete Time: 08:29 rt 10/27 07:30 Order name: CMP; Complete Time: 08:29 rt 10/27 07:30 Order name: Lactate w/ 2H reflex if indic.; Complete Time: 08:29 rt 10/27 07:30 Order name: UA MICROSCOPIC; Complete Time: 08:29 rt 10/27 07:30 Order name: US Scrotum Testicles; Complete Time: 08:29 rt 10/27 07:54 Order name: Urine Dipstick-Ancillary; Complete Time: 08:29 EDMS 10/27 07:30 Order name: Urine Dipstick-Ancillary (obtain specimen); Complete Time: 07:57 rt Administered Medications: 07:35 Drug: Ketorolac 30 mg Route: IVP; Site: right antecubital; ph 09:38 Follow up: Response: No adverse reaction ph Disposition Summary: 10/27/22 09:05 Discharge Ordered Location: Home rt Problem: an ongoing problem rt Symptoms: have improved rt Condition: Stable rt Diagnosis - Unilateral inguinal hernia, without obstruction or gangrene rt Followup: rt - With: Private Physician - When: 2 - 3 days - Reason: Followup: rt - With: Kumar Bo MD - When: 2 - 3 days - Reason: Discharge Instructions: - Discharge Summary Sheet rt Forms: - Medication Reconciliation Form rt - Thank You Letter rt - Antibiotic Education rt - Work release form rt - Prescription Opioid Use rt Prescriptions: - Tramadol 50 mg Oral Tablet - take 1 tablet by ORAL route every 8 hours as needed; 12 tablet; Refills: 0, rt Product Selection Permitted Signatures: Dispatcher [employer] Oly Orta RN RN Saul Deal MD MD rt
--- NOTE | 2022-10-27 09:06 | ER ---
Nurse's Notes [facility] Name: Eduard Bassett Jr Age: 41 yrs Sex: Male : 1980 Arrival Date: 10/27/2022 Time: 06:49 Bed 12 Private MD: Diagnosis: Unilateral inguinal hernia, without obstruction or gangrene Presentation: 10/27 07:06 Chief complaint: Patient states: L leg and testicle pain, states that he was dx w/ L ph inguinal hernia and is waiting to see surgeon. Coronavirus screen: Vaccine status: Patient reports receiving the 2nd dose of the covid vaccine. Ebola Screen: No symptoms or risks identified at this time. Initial Sepsis Screen: Does the patient meet any 2 criteria? No. Patient's initial sepsis screen is negative. Does the patient have a suspected source of infection? No. Patient's initial sepsis screen is negative. Risk Assessment: Do you want to hurt yourself or someone else? Patient reports no desire to harm self or others. Onset of symptoms was October 27, 2022. 07:06 Method Of Arrival: Ambulatory 07:06 Acuity: MIC 3 ph Triage Assessment: 07:57 General: Appears in no apparent distress. comfortable, Behavior is calm, cooperative, ph appropriate for age. General: Denies fever, chills. Pain: Complains of pain in left femoral area. Neuro: Level of Consciousness is awake, alert, obeys commands, Oriented to person, place, time, situation. Cardiovascular: Capillary refill < 3 seconds in bilateral fingers Patient's skin is warm and dry. Respiratory: Airway is patent Respiratory effort is even, unlabored, Respiratory pattern is regular, symmetrical. GI: Patient currently denies nausea, vomiting. : Reports pain in left in suprapubic area scrotum. Derm: Skin is healthy with good turgor, Skin is pink, warm \T\ dry. Historical: - Allergies: 07:08 No Known Allergies; ph - PMHx: 07:08 bicuspid valve deficiency; Migraines; ph - Immunization history:: Adult Immunizations unknown. - Social history:: Smoking status: Patient denies any tobacco usage or history of. - Family history:: not pertinent. Screenin:58 [facility] ED Fall Risk Assessment (Adult) History of falling in the last 3 months, ph including since admission No falls in past 3 months (0 pts) Confusion or Disorientation No (0 pts) Intoxicated or Sedated No (0 pts) Impaired Gait No (0 pts) Mobility Assist Device Used No (0 pt) Altered Elimination No (0 pt) Score/Fall Risk Level 0 - 2 = Low Risk Maintained a safe environment. Abuse screen: Denies threats or abuse. Denies injuries from another. Nutritional screening: No deficits noted. Tuberculosis screening: No symptoms or risk factors identified. Assessment: 07:59 Reassessment: US at bedside. General: SEE TRIAGE ASSESSMENT . ph Vital Signs: 07:06 BP 136 / 91; Pulse 77; Resp 18; Temp 97.8; Pulse Ox 95% on R/A; Weight 136.08 kg; ph Height 5 ft. 8 in. (172.72 cm); 09:37 BP 122 / 86; Pulse 71; Resp 18; Temp 98.0; Pulse Ox 99% on R/A; ph 07:06 Body Mass Index 45.61 (136.08 kg, 172.72 cm) ph ED Course: 06:49 Patient arrived in ED. [id number] 07:08 Triage completed. ph 07:08 Arm band placed on Patient placed in an exam room. ph 07:22 Saul Rees MD is Attending Physician. rt 07:32 Oly Gregory, JOE is Primary Nurse. ph 07:35 Initial lab(s) drawn, by az, sent to lab. Urine collected:. Inserted saline lock: 22 ph gauge in right antecubital area, using aseptic technique. Blood collected. 07:59 Patient has correct armband on for positive identification. Placed in gown. Bed in low ph position. Call light in reach. Side rails up X 1. Door closed. Noise minimized. Warm blanket given. 08:18 US Scrotum Testicles In Process Unspecified. EDMS 09:04 Kumar Bo MD is Referral Physician. rt 09:37 No provider procedures requiring assistance completed. IV discontinued, intact, ph bleeding controlled, No redness/swelling at site. Pressure dressing applied. Administered Medications: 07:35 Drug: Ketorolac 30 mg Route: IVP; Site: right antecubital; ph 09:38 Follow up: Response: No adverse reaction ph Medication: 07:59 VIS not applicable for this client. ph Outcome: 09:05 Discharge ordered by . rt 09:37 Discharged to home ambulatory. ph 09:37 Condition: good 09:37 Discharge instructions given to patient, Instructed on discharge instructions, follow up and referral plans. medication usage, Demonstrated understanding of instructions, follow-up care, medications, Prescriptions given X 1. 09:38 Patient left the ED. ph Signatures: Dispatcher [employer] Oly Orta RN RN ph Jeffries, Jennifer [email or web address] Saul Rees MD MD rt
[2022-10-27 10:01] VITALS: BP 122/86; TEMP 98; O2SAT 99
== END 2022-10-27 09:38 | disposition home or self-care (01) ==
LOC: ER 06:48
DX: K40.90 Unilateral inguinal hernia, without obstruction or gangrene, not specified as recurrent (principal)
CPT/HCPCS: 36415; 76870; 80053; 81003; 81015; 83605; 85025

== ENCOUNTER 2022-11-15 06:51 | Day surgery (SDC) | payer BC ==
--- NOTE | 2022-11-11 10:39 | RAD REPORT ---
EXAM DESCRIPTION: Frank Curtis (2 Views)11/11/2022 10:23 am CLINICAL HISTORY: Preop for hernia repair. Hypertension COMPARISON: None FINDINGS: The lungs appear clear of acute infiltrate. The heart is normal size IMPRESSION: No acute abnormalities displayed
[2022-11-15] MEDS ORDERED: Ringers Lactate 1,000 ML IV ONE (07:38)
[2022-11-15] MEDS ORDERED: CEFAZOLIN SODIUM 1 GM/VIAL ONE (07:38)
[2022-11-15] MEDS ORDERED: CELECOXIB 100 MG CAPSULE ONE (07:56)
[2022-11-15] MEDS ORDERED: ACETAMINOPHEN 500 MG TAB ONE (07:56)
[2022-11-15] MEDS ORDERED: FENTANYL CITR 100 MCG/2 ML ONE ×2 (08:09→08:53)
[2022-11-15] MEDS ORDERED: propofoL 200 MG/20 ML VIAL IV ONE ×2 (08:09→09:28)
[2022-11-15] MEDS ORDERED: ROCURONIUM 50 MG/5 ML VIAL IV ONE ×2 (08:09→08:50)
[2022-11-15] MEDS ORDERED: LIDOCAINE 2% MPF 5 ML VIAL ONE (08:10)
[2022-11-15] MEDS: CEFAZOLIN SODIUM 2 GM/VIAL ONE ×2 (08:28→08:30)
[2022-11-15] MEDS ORDERED: NS 0.9% VIAL 10 ML ONE (08:30)
[2022-11-15] MEDS ORDERED: ONDANSETRON 4 MG/2 ML VIAL ONE (08:42)
[2022-11-15] MEDS ORDERED: KETOROLAC 30 MG/ML INJ ONE (08:42)
[2022-11-15] MEDS ORDERED: NEOSTIGMINE 1 MG/ML -10 ML VIAL ONE (09:03)
[2022-11-15] MEDS ORDERED: GLYCOPYRROLATE 0.2 MG/ML SYR ONE ×2 (09:03→09:27)
--- NOTE | 2022-11-15 09:31 | P.OP ---
Date of Service: 11/15/22 Preop diagnosis: Left inguinal hernia Postop diagnosis: Same Procedure performed: Repair left inguinal hernia Surgeon: Olivier Richardson MD Project Intern: Sharon BARFIELD Estimated blood loss: Minimal Specimen: Cord lipoma and hernia sac Findings: As above Anesthesia: General Complications: None Drains: None Fluids and blood products: Nonapplicable Disposition: Recovery room Operative note: Patient brought to the OR and placed in supine position. General anesthesia begun. Patient prepped and draped in usual sterile fashion. Marcaine 0.5% infiltrated locally in a field block fashion. 15 blade used to make a 5 cm oblique incision between the pubic tubercle and the anterior iliac superior spine. Dave's fascia identified and divided. Aponeurosis of the external abdominal oblique identified mobilized inferiorly to expose the shelving edge. Cord mobilized at the pubic tubercle and skeletonized. Ilioinguinal nerve identified retracted out of the field of dissection. A large cord lipoma small hernia sac identified. High ligation with 2-0 Prolene accomplished in the standard fashion. No other evidence of a direct hernia appreciated. Marlex mesh plug medium in size placed in the internal ring and secured with VersaTack stapler. Onlay mesh placed on the inguinal floor and secured medially to the pubic tubercle, superior to the conjoined tendon, laterally to each other and inferiorly to the shelving edge. Cord structures ilioinguinal nerve placed back in anatomic location. Wound irrigated and bleedi ng controlled with cautery. 3-0 chromic used to reapproximate Dave's fascia. And kristen used to close skin. Sterile dressing applied. Patient awakened taken to recovery room in good general condition. CC: Dr. Johns's office
[2022-11-15] MEDS ORDERED: HYDROCODONE/APAP 7.5/325 MG TAB PO PRN (09:32)
[2022-11-15] MEDS ORDERED: SUGAMMADEX SODIUM 200 MG/2 ML VIAL IV ONE (09:32)
[2022-11-15] MEDS ORDERED: SUCCINYLCHOLINE 20 MG/ML (10 ML) IV ONE (09:50)
[2022-11-15] MEDS: HYDROMORPHONE HCL 1 MG/ML INJ ONE ×2 (10:00→10:12)
[2022-11-15 11:13] VITALS: TEMP 97.1
[2022-11-15] MEDS ORDERED: HYDROCODONE/APAP 7.5/325 MG TAB ONE (11:57)
[2022-11-15 13:39] VITALS: BP 120/70; O2SAT 94
== END 2022-11-15 14:15 | disposition home or self-care (01) ==
LOC: OR 06:51
PROVIDERS: ATTEND Surgery
PROC: 0YU60JZ Supplement Left Inguinal Region with Synthetic Substitute, Open Approach (ICD-10-PCS; principal; 2022-11-15 08:30)
DX: K40.90 Unilateral inguinal hernia, without obstruction or gangrene, not specified as recurrent (principal); E66.01 Morbid (severe) obesity due to excess calories
CPT/HCPCS: 88302; 71046; 49505; J2704 ×2; J2710; J0330; J2001; J3010 ×2; A4216; J1170; J7120; J2405; J0690

== ENCOUNTER 2023-09-14 06:26 | Emergency (ER) | payer BC ==
--- OUTSIDE RECORDS SUMMARY | 2023-09-14 06:29 | XMS REPORT | Continuity of Care Document ---
:1980 Author Organization [facility] t Address [address] [place] [address] Care Team Providers Name Role Phone Unavailable Unavailable Unavailable Problems This patient has no known problems. Allergies, Adverse Reactions, Alerts This patient has no known allergies or adverse reactions. Social History Social Habit Start Date Stop Date Quantity Comments Source Sexual orientation Method [facility] Sex Assigned At [birth year] [facility] 00:00:00 00:00:00 Smoking Status Start Date Stop Date Source Tobacco smoking consumption unknown [facility] Medications This patient has no known medications. Procedures This patient has no known procedures. Plan of Care Planned Activity Planned Date Details Comments Source Future Scheduled 2023-08-28 [facility] 13:36:35 (#1) [code = COVID-19 VACCINE (#1)] Future Scheduled 2023-08-28 Hepatitis C [facility] Test 13:36:35 screening (procedure) [code = 932967074] Future Scheduled 2023-08-28 INFLUENZA VACCINE Method [facility] Test 13:36:35 (#1) [code = INFLUENZA VACCINE (#1)] Encounters Start End Encounter Admission Attending Care Care Encounter Source Date/Time Date/Time Type Type Clinicians Facility Department ID 2022-11-08 2022-11-08 Lab [id number] [facility] 12:50:00 12:55:[id number] [id number] Hospit [id number] l .8 2022-11-08 2022-11-08 Outpatient [facility] [id number] [address] [place] 00:00:00 00:00:[address] Results This patient has no known results.
[2023-09-14] MEDS ORDERED: DIPHENHYDRAMINE 50 MG/ML VIAL ONE (07:45)
[2023-09-14] MEDS ORDERED: dexAMETHasone 10 MG/ML VIAL ONE (07:45)
[2023-09-14] MEDS ORDERED: NA CHLORIDE 0.9% 50 ML ONE (07:46)
[2023-09-14 08:18] LABS: Hematocrit 44.5 % (39.6-49.0); Lymphocytes % 41.1 % (15.3-44.8); MPV 7.2 fL (7.6-11.3); Platelets 216 thou/uL (152-406); RBC Red Blood Cell Count 4.94 M/uL (4.33-5.43)
[2023-09-14 08:36] LABS: Albumin 3.3 g/dL (3.4-5.0); Bilirubin Total 0.5 mg/dL (0.2-1.0); Potassium 3.8 mEq/L (3.5-5.1); Protein, Total 6.5 g/dL (6.4-8.2)
--- NOTE | 2023-09-14 08:52 | EDPHYS ---
Physician Documentation [facility] Name: Eduard Bassett Jr Age: 42 yrs Sex: Male : 1980 Arrival Date: 09/14/2023 Time: 06:26 Bed 20 Private MD: ED Physician Chan Gant HPI: 09/14 07:08 This 42 yrs old Male presents to ER via Ambulatory with complaints of ec2 Headache. 07:08 Patient with history of migraines arrives today due to concern for headache. States ec2 that he has a diffuse pressure-like sensation throughout his head, states that this is similar to his typical headaches. Patient reports that he takes chronic migraine medications that have not improved his symptoms today. Patient reports emergent congestion otherwise decent p.o. intake, no vomiting or diarrhea. Has otherwise been in normal state of health.. Historical: - Allergies: 06:57 No Known Allergies; pf1 - PMHx: 06:57 bicuspid valve deficiency; Migraines; fatty liver; pineal cyst; pf1 - PSHx: 06:57 left inguinal hernia; pf1 - Immunization history:: Adult Immunizations up to date, Client reports receiving the 2nd dose of the Covid vaccine, Last tetanus immunization: < 5 years ago Flu vaccine is not up to date. - Social history:: Smoking status: Patient denies any tobacco usage or history of. Patient/guardian denies using alcohol, street drugs. ROS: 07:08 Constitutional: as per hpi ec2 Exam: 07:08 Constitutional: GEN: NAD Head: atraumatic Eyes: EOMI Ears: External ears are ec2 normal. CV: regular rate LUNGS: no respiratory distress ABD: non-distended SKIN: no evidence of rashes MSK: no evidence of trauma NEURO: moves all extremities equally, cranial nerves II through XII, strength intact throughout, sensation intact throughout. Vital Signs: 06:45 BP 126 / 77; Pulse 72; Resp 16; Temp 97.8; Pulse Ox 97% ; Weight 136.08 kg; Height 5 pf1 ft. 8 in. ; Pain 10/10; 07:05 BP 134 / 81; Pulse 74; Resp 16; Pulse Ox 96% on R/A; db 08:40 BP 121 / 66; Pulse 67; Resp 16; Pulse Ox 99% on R/A; db 06:45 Body Mass Index 45.61 (136.08 kg, 172.72 cm) pf1 06:45 Pain Scale: Adult pf1 MDM: 07:03 Patient medically screened. ec2 07:08 Data reviewed: vital signs. ED course: Patient with history of migraines arrives today ec2 due to concern for headache. Examination remarkable for neuro intact individual otherwise reassuring vital signs. Will obtain basic lab work, treat the patient symptoms and reassess the patient. Currently considering migraine symptoms, low suspicion for intracranial mass or brain bleed. Will defer CT imaging.. 08:49 ED course: CBC and metabolic profile are reassuring. . ec2 08:51 ED course: On reassessment patient reports marked improvement in his symptoms. Will ec2 discharge home, presentation consistent with his typical headache syndrome. Instructed to follow-up with his neurologist. Return precautions given.. 09/14 07:08 Order name: CBC with Diff; Complete Time: 08:27 ec2 09/14 07:08 Order name: CMP; Complete Time: 08:49 ec2 09/14 07:40 Order name: Labs - recollect needed: recollect all tubes; Complete Time: 08:12 bd Administered Medications: 07:35 Drug: NS 0.9% IV 1000 ml IV at 1 bolus Per protocol; 1000 mL bolus Route: IV; Rate: 1 db bolus; Site: right antecubital; 09:08 Follow up: Response: No adverse reaction; IV Status: Completed infusion; IV Intake: db 1000ml 07:37 Drug: metoCLOPramide IVP 10 mg IVP once; over 1 to 2 minutes Route: IVP; Site: right db antecubital; 09:08 Follow up: Response: No adverse reaction db 07:38 Drug: diphenhydrAMINE IVP 50 mg IVP once Route: IVP; Site: right antecubital; db 09:08 Follow up: Response: No adverse reaction db 07:38 Drug: Decadron - Dexamethasone IVP 10 mg IVP once Route: IVP; Site: right antecubital; db 09:09 Follow up: Response: No adverse reaction db 07:38 Drug: Ketorolac IVP 15 mg IVP once Route: IVP; Site: right antecubital; db 09:09 Follow up: Response: No adverse reaction db Disposition Summary: 09/14/23 08:51 Discharge Ordered Notes: Location: Home ec2 Condition: Stable ec2 Diagnosis - Headache ec2 Followup: ec2 - With: Job French MD - When: - Reason: Continuance of care Discharge Instructions: - Discharge Summary Sheet ec2 - General Headache Without Cause ec2 Forms: - Work release form ec2 - Medication Reconciliation Form ec2 - Thank You Letter ec2 - Antibiotic Education ec2 - Prescription Opioid Use ec2 - Patient Portal Instructions ec2 - Leadership Thank You Letter ec2 Signatures: Dispatcher [employer] EDEloisa Biswas Danielle, JOE RN db Maria Isabel Mccrary RN RN pf1 Chan Gant MD MD ec2
--- NOTE | 2023-09-14 08:52 | ER ---
Nurse's Notes [facility] Name: Eduard Bassett Jr Age: 42 yrs Sex: Male : 1980 Arrival Date: 09/14/2023 Time: 06:26 Bed 20 Private MD: Diagnosis: Headache Presentation: 09/14 06:45 Chief complaint: Patient states: frontal migraine pain of 10,onset 0300. Patient stated pf1 took his migraine medication Ubrelvy 200mg at 0300. Patient stated F/U with Dr. French for his migraines. 06:45 Coronavirus screen: Vaccine status: Patient reports receiving the 2nd dose of the covid pf1 vaccine. Client denies travel out of the [place] in the last 14 days. Client presents with at least one sign or symptom that may indicate coronavirus-19. Ebola Screen: Patient negative for fever greater than or equal to 101.5 degrees Fahrenheit, and additional compatible Ebola Virus Disease symptoms. Initial Sepsis Screen: Does the patient meet any 2 criteria? No. Patient's initial sepsis screen is negative. Does the patient have a suspected source of infection? No. Patient's initial sepsis screen is negative. Risk Assessment: Do you want to hurt yourself or someone else? Patient reports no desire to harm self or others. 06:45 Method Of Arrival: Ambulatory pf1 06:45 Acuity: MIC 3 pf1 09:08 Onset of symptoms was September 14, 2023. db Triage Assessment: 09:07 Headache History: The patient has had previous headaches and this one is similar to db previous episodes. General: Appears in no apparent distress. comfortable, Behavior is calm, cooperative. Pain: Also complains of no other associated symptoms. Pain: Complains of pain in head. Historical: - Allergies: 06:57 No Known Allergies; pf1 - PMHx: 06:57 bicuspid valve deficiency; Migraines; fatty liver; pineal cyst; pf1 - PSHx: 06:57 left inguinal hernia; pf1 - Immunization history:: Adult Immunizations up to date, Client reports receiving the 2nd dose of the Covid vaccine, Last tetanus immunization: < 5 years ago Flu vaccine is not up to date. - Social history:: Smoking status: Patient denies any tobacco usage or history of. Patient/guardian denies using alcohol, street drugs. Screenin:59 [facility] ED Fall Risk Assessment (Adult) History of falling in the last 3 months, pf1 including since admission No falls in past 3 months (0 pts) Confusion or Disorientation No (0 pts) Intoxicated or Sedated No (0 pts) Impaired Gait No (0 pts) Mobility Assist Device Used No (0 pt) Altered Elimination No (0 pt) Score/Fall Risk Level 0 - 2 = Low Risk Oriented to surroundings, Maintained a safe environment, Educated pt \T\ family on fall prevention, incl call for assistance when getting out of bed, Assessed \T\ reinforced patient's understanding of fall precautions, Provided non-skid footwear, Hourly rounding (assess needs \T\ fall precautionary measures) done, Used ambulatory aids as needed (educated on \T\ assisted with), Used gait belt as appropriate. Abuse screen: Denies threats or abuse. Nutritional screening: No deficits noted. Tuberculosis screening: No symptoms or risk factors identified. Assessment: 06:59 General: Appears in no apparent distress. uncomfortable, obese, well groomed, well pf1 developed, Behavior is calm, cooperative, appropriate for age, quiet. Pain: Complains of pain in frontal headache Pain currently is 10 out of 10 on a pain scale. Pain began 3 hours ago. Pain: Pain began 4 hours ago. Neuro: Level of Consciousness is awake, alert, obeys commands, Oriented to person, place, time, situation, Reports headache frontal area. Cardiovascular: No deficits noted. Capillary refill < 3 seconds Patient's skin is warm and dry. Respiratory: No deficits noted. Airway is patent Respiratory effort is even, unlabored, Respiratory pattern is regular, symmetrical. GI: No deficits noted. No signs and/or symptoms were reported involving the gastrointestinal system. : No deficits noted. No signs and/or symptoms were reported regarding the genitourinary system. EENT: No deficits noted. No signs and/or symptoms were reported regarding the EENT system. Vital Signs: 06:45 BP 126 / 77; Pulse 72; Resp 16; Temp 97.8; Pulse Ox 97% ; Weight 136.08 kg; Height 5 pf1 ft. 8 in. ; Pain 10/10; 07:05 BP 134 / 81; Pulse 74; Resp 16; Pulse Ox 96% on R/A; db 08:40 BP 121 / 66; Pulse 67; Resp 16; Pulse Ox 99% on R/A; db 06:45 Body Mass Index 45.61 (136.08 kg, 172.72 cm) pf1 06:45 Pain Scale: Adult pf1 ED Course: 06:30 Patient arrived in ED. gm2 06:51 Luz Frank, RN is Primary Nurse. km8 06:56 Triage completed. pf1 06:59 Patient has correct armband on for positive identification. Bed in low position. Call pf1 light in reach. 07:03 Chan Gant MD is Attending Physician. ec2 07:05 Inserted saline lock: 20 gauge in right antecubital area, using aseptic technique. oe Blood collected. 07:26 Jacquelyn Tom, RN is Primary Nurse. db 08:51 Job French MD is Referral Physician. ec2 09:06 Provided Education on: DISCHARGE. Pulse ox on. NIBP on. Warm blanket given. db 09:06 No provider procedures requiring assistance completed. IV discontinued, intact, db bleeding controlled, No redness/swelling at site. 09:08 Arm band placed on Patient placed in an exam room. db Administered Medications: 07:35 Drug: NS 0.9% IV 1000 ml IV at 1 bolus Per protocol; 1000 mL bolus Route: IV; Rate: 1 db bolus; Site: right antecubital; 09:08 Follow up: Response: No adverse reaction; IV Status: Completed infusion; IV Intake: db 1000ml 07:37 Drug: metoCLOPramide IVP 10 mg IVP once; over 1 to 2 minutes Route: IVP; Site: right db antecubital; 09:08 Follow up: Response: No adverse reaction db 07:38 Drug: diphenhydrAMINE IVP 50 mg IVP once Route: IVP; Site: right antecubital; db 09:08 Follow up: Response: No adverse reaction db 07:38 Drug: Decadron - Dexamethasone IVP 10 mg IVP once Route: IVP; Site: right antecubital; db 09:09 Follow up: Response: No adverse reaction db 07:38 Drug: Ketorolac IVP 15 mg IVP once Route: IVP; Site: right antecubital; db 09:09 Follow up: Response: No adverse reaction db Medication: 09:06 VIS not applicable for this client. db Intake: 09:08 IV: 1000ml; Total: 1000ml. db Outcome: 08:51 Discharge ordered by . ec2 :06 Discharged to home ambulatory, with family, db : Condition: stable :06 Discharge instructions given to patient, Instructed on discharge instructions, follow up and referral plans. 09:09 Patient left the ED. db Signatures: Danyel Sutherland Danielle, RN RN db Maria Isabel Mccrary RN RN pf1 Chan Gant MD MD ec2 Xochitl Farr [facility] Luz Frank RN RN [id number]
[2023-09-14 09:31] VITALS: TEMP 97.8
[2023-09-14 09:32] VITALS: BP 121/66; O2SAT 99
== END 2023-09-14 09:09 | disposition home or self-care (01) ==
LOC: ER 06:26
DX: R51.9 Headache, unspecified (principal)
CPT/HCPCS: 96361; 85025; 36415; 80053; 96375; 96374; 99284; J1200; J1100